=== PATIENT | female | born 1950 | race Caucasian/White ===

== ENCOUNTER 2017-06-30 06:22 | Inpatient (IN) | payer OTHER ==
[2017-05-18 13:53] VITALS: BMI 41.0
--- NOTE | 2017-05-18 14:22 | PAT Medication Instructions ---
Service Date May 18, 2017. Current Home Medication List Allopurinol (Zyloprim), 300 MG PO QAM Aspirin (Aspirin Ec), 81 MG PO QAM Gemfibrozil (Lopid), 300 MG PO QPM Lisinopril/Hctz (Zestoretic 20MG/25MG), 1 TAB PO QAM Metformin Hcl (Glucophage), 1,000 MG PO BID Pravastatin (Pravachol ), 20 MG PO QPM Tramadol (Ultram), 50 MG PO Q8H PRN for Pain Medication Instructions For Your Scheduled Surgery - Hold the following medications 48 hours prior to surgery: Metformin Hcl (Glucophage), 1,000 MG PO BID - Hold the following medications the morning of surgery: Lisinopril/Hctz (Zestoretic 20MG/25MG), 1 TAB PO QAM - Take the following medications the morning of surgery with a sip of water: Allopurinol (Zyloprim), 300 MG PO QAM Aspirin (Aspirin Ec), 81 MG PO QAM (okay to continue per surgeon) Tramadol (Ultram), 50 MG PO Q8H PRN for Pain (okay to take up to 4 hours prior to surgery if needed) - Hold the following medications as scheduled the night before surgery: Gemfibrozil (Lopid), 300 MG PO QPM - Take the following medications as scheduled the night before surgery: Pravastatin (Pravachol ), 20 MG PO QPM Tramadol (Ultram), 50 MG PO Q8H PRN for Pain (if needed) If you have any questions please call us at [phone] or [phone] or [phone]
[2017-05-18 14:58] LABS: BASO % 0.2 %; BASO ABS # 0.02 K/uL (0-0.2); COMPLETE YES; EOS % 2.1 %; HEMATOCRIT 40.5 % (37-47); IG% 0.4 %; LYMPH ABS # 2.79 K/uL (1.2-3.4); MEAN CELL VOLUME 89.8 fL (80-100); MEAN CORPUSCULAR HEMOGLOBIN 29.9 pg (25-34); MEAN CORPUSCULAR HGB CONC 33.3 g/dl (32-36); MEAN PLATELET VOLUME 10.3 fL (7.4-10.4); MONO % 5.9 %; NEUT % 58.4 %; PLATELET COUNT 206 K/uL (130-400); RED BLOOD COUNT 4.51 M/uL (4.2-5.4); WHITE BLOOD COUNT 8.45 K/uL (4.8-10.8)
--- NOTE | 2017-05-18 14:58 | DIAGNOSTIC IMAGING REPORT ---
CHEST PREADMISSION(PA/LAT) CLINICAL HISTORY: Preoperative chest. Osteoarthritis. COMPARISON STUDY: No previous studies for comparison. FINDINGS: The cardiac and mediastinal contours are normal. There is no evidence of focal pulmonary consolidation. There is no evidence of failure. No pleural effusions are visualized.[ There is ankylosis of the dorsal spine. IMPRESSION: No active disease in the chest. Electronically signed by: Vini Alves M.D. 05/18/2017 2:57 PM Dictated Date/Time: 05/18/2017 2:56 PM
[2017-05-18 15:02] LABS: URINE APPEARANCE CLEAR (CLEAR); URINE BILIRUBIN NEG (NEG); URINE COLOR YELLOW; URINE NITRITE NEG (NEG); URINE PH 6.5 (4.5-7.5); URINE SPECIFIC GRAVITY 1.018 (1.000-1.030); UROBILINOGEN NEG (NEG); ZZUR CULT IF INDIC CLEAN CATCH NO
[2017-05-18 15:04] LABS: ESTIMATED AVERAGE GLUCOSE 140 mg/dl; HA1C FLAG Normal (Normal)
[2017-05-18 15:07] LABS: PROTHROMBIN TIME (PATIENT) 10.3 SECONDS (9.0-12.0)
[2017-05-18 15:13] LABS: MANUAL MICROSCOPIC REQUIRED? NO; REVIEW REQ? NO
[2017-05-18 16:38] LABS: BUN/CREATININE RATIO 18.8 (10-20); CALCIUM 9.3 mg/dl (8.5-10.1); CREATININE 0.89 mg/dl (0.60-1.20); POTASSIUM 4.2 mmol/L (3.5-5.1)
--- NOTE | 2017-06-07 14:01 | HISTORY & PHYSICAL EXAMINATION ---
DATE OF ADMISSION: 06/16/2017 SUBJECTIVE CHIEF COMPLAINT: Left knee pain. HISTORY OF PRESENT ILLNESS: The patient is a 66-year-old female who presents with left knee pain. She states that the symptoms have been chronic and nontraumatic in nature and occur constantly. She describes the pain as aching and throbbing. She has tried cortisone injections, nonsteroidal anti-inflammatories and physical therapy without relief. She continues to have swelling and pain throughout her knee while doing activities of daily living. She would like to proceed with a left total knee arthroplasty. PAST MEDICAL HISTORY: Significant for hypertension, hypercholesterolemia, [id number] diabetes, and osteoarthritis. PAST SURGICAL HISTORY: Cholecystectomy, back surgery, and total hysterectomy. SOCIAL HISTORY: She denies alcohol use. She denies smoking or tobacco use. She denies IV or illegal drug use. She lives in a 1-story house. She is currently retired. ALLERGIES: GABAPENTIN. MEDICATIONS: Metformin 1000 mg b.i.d., pravastatin 20 mg daily, gemfibrozil 600 mg one-half daily, allopurinol 300 mg daily, aspirin 81 mg 1 tablet daily, lisinopril 20 mg, and hydrochlorothiazide 25 mg 1 tablet daily. REVIEW OF SYSTEMS: She denies headaches, fevers, chills, double vision, blurry vision, sore throat, cough, chest pain, nausea, vomiting, diarrhea, constipation, numbness, tingling, tired, urinary difficulties, thoughts to harm herself or harm others and depression. She is positive for joint pain and joint stiffness of the left knee. OBJECTIVE: GENERAL APPEARANCE: The patient is a 66-year-old female, sitting in no acute distress. She is well dressed and well nourished. She is awake, alert and oriented x3. VITAL SIGNS: She is 5 feet 2 inches tall and 227 pounds. HEENT: Normocephalic and atraumatic. Extraocular movements are intact. PERRLA. Mucosa was moist. No septal deviation. NECK: Supple with no lymphadenopathy, no JVD, and no thyromegaly. HEART: Regular rate and rhythm. No murmurs. LUNGS: Clear to auscultation. No wheezing or rhonchi. ABDOMEN: Soft, nontender, and nondistended. Normal bowel sounds. No hepatosplenomegaly. EXTREMITIES: Paying particular attention to the left lower extremity, she is able to extend to 0 degrees and flex to 90 degrees. She has medial joint line tenderness. Her ligaments are intact. NEUROLOGIC: Cranial nerves II-XII were intact. Pulses were compared bilaterally and were equal. IMAGING: X-rays of the left knee demonstrate [id number] medial compartment, osteophyte formation and subchondral sclerosis. IMPRESSION: Primary osteoarthritis of the left knee. PLAN: The patient is scheduled for a left total knee arthroplasty. She has tried conservative therapies of nonsteroidal anti-inflammatories, cortisone injections, and physical therapy with no relief. This affects her activities of daily living. She would like to proceed with a left total knee arthroplasty. Risks and benefits to surgery were discussed and included, but not limited to DVT, infection, blood loss, nerve damage, failure to relieve pain, PE, and anesthesia risks and need for revision surgery were all discussed with the patient and she wishes to proceed. All questions were answered to her satisfaction. DVT prophylaxis will be aspirin 81 mg b.i.d. She would like to go home with home health after her hospital stay. MARISOL
--- NOTE | 2017-06-23 11:50 | HISTORY & PHYSICAL EXAMINATION ---
DATE OF ADMISSION: 06/30/2017 SUBJECTIVE CHIEF COMPLAINT: Left knee pain. HISTORY OF PRESENT ILLNESS: The patient is a 66-year-old female who presents to the office with left knee pain. She states the symptoms were of chronic and nontraumatic in nature. The symptoms occur constantly and she describes the pain as aching and throbbing. She has tried previous cortisone injections, physical therapy, and nonsteroidal anti-inflammatories with minimal relief. She would like to proceed with a left total knee arthroplasty. PAST MEDICAL HISTORY: Significant for hypertension, hypercholesterolemia, [id number]-akemtnstz diabetes, and osteoarthritis. PAST SURGICAL HISTORY: Cholecystectomy, back surgery, total hysterectomy. SOCIAL HISTORY: She denies alcohol use. She denies smoking or tobacco use. She denies IV or illegal drug use. She lives in a [address] house and she is currently retired. FAMILY HISTORY: Her brother and her father both had a history of heart attack. ALLERGIES: GABAPENTIN. MEDICATIONS: Tramadol 50 mg every 6 hours as needed for pain, metformin 1000 mg b.i.d., pravastatin 20 mg daily, gemfibrozil 600 mg half tablet daily, allopurinol 300 mg daily, aspirin 81 mg daily, lisinopril 20 mg, hydrochlorothiazide 25 mg 1 tablet daily. REVIEW OF SYSTEMS: She denies headaches, fevers, chills, double vision, blurry vision, sore throat, cough, chest pain, nausea, vomiting, diarrhea, constipation, numbness or tingling, tired, urinary difficulties, thoughts to harm herself or harm others or depression. She is positive for joint pain and joint stiffness of the left knee. OBJECTIVE: GENERAL APPEARANCE: The patient is a 66-year-old female that is sitting in no acute distress. She is well dressed, well nourished. She is awake, alert and oriented x3. VITAL SIGNS: She is 5 foot 2 inches tall, 227 pounds. HEENT: Extraocular movements are intact. PERRLA. Mucosa was moist. No septal deviation. NECK: Supple with no lymphadenopathy, no JVD, no thyromegaly. HEART: Regular rate and rhythm with no murmurs or gallops. LUNGS: Clear to auscultation. No wheezing or rhonchi. ABDOMEN: Soft, nontender, nondistended. Normal bowel sounds, no hepatosplenomegaly. EXTREMITIES: Paying particular attention to the left lower extremity, she is able to extend her knee to 0 degrees and actively flex to 100 degrees. She has medial joint line tenderness as well as anterior knee pain. Ligaments are intact. NEUROLOGIC: Cranial nerves II-XII are intact. Pulses were compared bilaterally and were equal. IMAGING: X-rays of the left knee demonstrate bone on bone of the medial compartment, osteophyte formation and subchondral sclerosis. IMPRESSION: Primary osteoarthritis of the left knee. PLAN: The patient is scheduled for a left total knee arthroplasty. The patient has failed conservative therapies of cortisone injections, nonsteroidal anti-inflammatories and physical therapy. She states that it affects her activities of daily living and she would like to proceed with a left total knee arthroplasty. Risks and benefits to surgery were discussed that included but not limited to blood loss, DVT, infection, damage to blood vessels, damage to nerves, failure to relieve all pain, decreased range of motion and anesthesia risks and were all discussed reviewed with the patient. She understands these risks and she wishes to proceed. All questions were answered to her satisfaction. DVT prophylaxis will be aspirin 81 mg b.i.d. and she will be discharged home with home health. MARISOL
[~2017-06-30] VITALS: Ht 157.5 cm; Wt 102.3 kg
[2017-06-30] VITALS (9 sets, daily range): BP systolic 102–167; BP diastolic 64–103; PULSE 64–80; TEMP 36.3–37.1; O2SAT 95–98; Ht 157.5 cm; Wt 102.3 kg
[~2017-06-30 06:22] MED LIST: ACETAMINOPHEN 500 MG TAB PO SCH; ALLO300T2 PO; ASPI81TA28 PO; CEFAZOLIN 2000 MG/60 ML D5W 60 ML IV SCH; CEFAZOLIN 2000 MG/60 ML D5W IV SCH; CeleBREX 200 MG CAP PO SCH; DEXAMETHASONE 4 MG TAB PO SCH; FAMOTIDINE 20 MG TAB PO SCH; GEMF600T3 PO; LACTATED RINGER'S 1000ML 1,000 ML IV SCH; LACTATED RINGER'S 1000ML 500 ML IV ONE; LACTATED RINGER'S 1000ML IV SCH; LISI-788 PO; METF-384 PO; METOCLOPRAMIDE HCL 10 MG TAB PO SCH; MISSING PHYSICIAN SIGNATURE ON ORDER SCH; PRAV20TA PO; ROPIVACAINE 5MG/ML 30 ML 150 MG, BUPIVACAINE/EPINEPHR 0.5% MPF 30 ML, KETOROLAC TROMETH... INFIL SCH; TRAM-10 PO
--- NOTE | 2017-06-30 06:59 | History & Physical Bridge Note ---
H&P Re-Evaluation Bridge Note: I have examined the patient, reviewed the History & Physical and in the interval since the performance of the History & Physical I have noted the following changes of clinical significance: No changes noted
[2017-06-30] MEDS ORDERED: BUPIVACAINE 0.25% 30 ML VIAL ONE (07:28)
[2017-06-30] MEDS ORDERED: BUPIVACAINE 0.5 % 5 MG/1 ML PF 10ML VIAL ONE (07:29)
[2017-06-30] MEDS ORDERED: FENTANYL CITRATE INJ 50 MCG/1 ML 2 ML VIAL ONE ×3 (08:29→10:36)
[2017-06-30] MEDS ORDERED: PROPOFOL IV EMULSION 10 MG/ML 20 ML VIAL IV ONE ×2 (08:29→10:34)
[2017-06-30] MEDS ORDERED: MIDAZOLAM HCL 1 MG/ML 2ML VIAL ONE (08:29)
[2017-06-30] MEDS: TRANEXAMIC ACID INJ 1,000 MG in SODIUM CHLORIDE 0.9% 100ML 100 ML IV SCH ×2 (09:03→14:30)
[2017-06-30] MEDS ORDERED: LIDOCAINE HCL 2% 2 ML VIAL (20MG/ML) ONE (09:20)
[2017-06-30] MEDS ORDERED: BACITRACIN 50000 UNIT VIAL ONE (09:41)
[2017-06-30] MEDS ORDERED: POVIDONE-IODINE OP SOLN 30 ML BTL ONE (09:41)
[2017-06-30] MEDS ORDERED: ORTHO JOINT ANESTHETIC ONE (10:10)
[2017-06-30] MEDS ORDERED: HYDROmorphone INJ 2 MG/ML SYR/VIAL ONE ×2 (10:38→12:33)
[2017-06-30] MEDS ORDERED: LABETALOL HCL IV 5 MG/ML 20ML IV ONE (10:51)
[2017-06-30] MEDS ORDERED: ONDANSETRON INJ 2 MG/ML 2 ML VIAL ONE (10:51)
[2017-06-30] MEDS ORDERED: LABETALOL HCL IV 5 MG/ML 20ML IV PRN (11:15)
[2017-06-30] MEDS ORDERED: ONDANSETRON INJ 2 MG/ML 2 ML VIAL IV PRN ×2 (11:15→12:30)
[2017-06-30] MEDS ORDERED: HYDROmorphone INJ 1 MG/ML SYR IV PRN (11:15)
[2017-06-30] MEDS ORDERED: FLUMAZENIL 0.1 MG/1 ML 10 ML VIAL IV PRN (11:15)
[2017-06-30] MEDS ORDERED: ATROPINE SULFATE 0.1 MG/ML 5ML SYR IV PRN (11:15)
[2017-06-30] MEDS ORDERED: NALOXONE HCL 0.4 MG/1 ML VIAL/CARP IV PRN (11:15)
[2017-06-30] MEDS ORDERED: PROMETHAZINE HCL INJ 12.5 MG in SODIUM CHLORIDE 0.9% 50ML 50 ML IV PRN (11:15)
[2017-06-30] MEDS ORDERED: EpHEDrine SULFATE INJ 50 MG/ML AMP IV PRN (11:15)
--- NOTE | 2017-06-30 11:51 | [facility] Operative Report ---
Operative Report Operative Date Jun 30, 2017. Pre-Operative Diagnosis Primary Osteoarthritis of Left Knee Post-Operative Diagnosis Primary Osteoarthritis of Left Knee Procedure(s) Performed Left Total Knee Arthroplasty, Cemented Surgeon Dr. Gerardo Santacruz Supplies Packer Surgeon(s) Goyo Arriola PA-C Estimated Blood Loss 50ML Findings as above Specimens A. Left Knee Bone and Tissue Drains 0 Anesthesia geta Complication(s) None Disposition Recovery Room / PACU Indications 66 yo female with bone on bone OA of the left knee particularly in the medial compartment. She has failed conservative measures including injection and anti- inflammatories and rehabilitation. She wishes to proceed with left total knee arthroplasty. Description of Procedure Risks benefits and alternatives of surgery including but not limited to infection DVT pain stiffness need for surgery damage to blood vessels damage to nerves or risks of anesthesia were discussed with the patient and she wished to proceed. Patient was identified in the laterality was confirmed and marked. She received a preoperative antibiotic is also a spinal anesthetic and a abductor canal block. A well-padded tourniquet was applied and then the limb was prepped and draped in standard manner with ChloraPrep. The tourniquet was inflated. I made a standard anterior incision. I sharply incised the skin then utilized Bovie electrocautery as well as the aqua mantis to achieve hemostasis. I made a medial parapatellar arthrotomy immobilized the patella laterally. I then excised the anterior horns of the medial and lateral meniscus as well as the infrapatellar fat pad. I elevated a portion of the MCL off of the tibia. I then pinned into place a patient-matched distal femoral cutting guide and made my distal femoral resection. I then pinned into place a size the 5 in 1 cutting guide. I made my anterior, posterior and chamfer cuts. I then excised the cruciates and the remaining portions of the menisci. I then pinned into place a patient- matched tibial cutting guide and made my tibial resection. I then pinned into place the patient matched tibial cutting guide and used a alignment deborah to confirm rotation. I then cut for the post. Utilizing a lamina shoe turner and I then removed posterior osteophytes off the femur. I then placed a trial femur into position and cut for the trochlear component. I then sequentially trialed the polyethylene, she was still tight in both flexion as well as extension with the 9 mm poly-. I therefore took an additional 2 mm off of the tibia. I then trialed up to size 10 poly-and there was good soft tissue balancing and range of motion. I then prepared the patella with a freehand cut utilizing sagittal saw. I sized and drilled for the patella. There was some slight lateral tracking of the patella small lateral release was needed. All the trial components were removed. The deep tissues were anesthetized with and ortho mix solution. Then with Simplex HV with gentamicin cement I cemented my definitive components. Definitive components, Silverman and Nephew Sally 2: Femur 5 Tibia for Poly 10 Patella 32 oval A betadine soak was performed. The arthrotomy was closed with interrupted #1 Vicryl suture subcutaneous tissue was closed with interrupted 2-0 Vicryl suture. The skin was closed with dudley. A sterile Prevena wound VAC dressing was applied. All needle and sponge counts were correct at the end of the procedure patient was transferred to the PACU in stable condition without apparent complication. The PA-C was necessary for assistance with procedure for assistance in positioning, prepping, draping, retraction and closure. I attest to the content of the Intraoperative Record and any orders documented therein. Any exceptions are noted below.
[2017-06-30] MEDS ORDERED: BISACODYL 10 MG SUPP PR PRN (12:30)
[2017-06-30] MEDS ORDERED: ZOLPIDEM TARTRATE 5 MG TAB PO PRN (12:30)
[2017-06-30] MEDS ORDERED: MAGNESIUM HYDROXIDE SUSP 30 ML UDC PO PRN (12:30)
[2017-06-30] MEDS ORDERED: ALUMINUM/MAGNESIUM/SIMETH (MAALOX MAX) 30 ML UDC PO PRN (12:30)
[2017-06-30] MEDS ORDERED: SOD PHOSPHATE/SOD BIPHOSPHATE ENEMA 132 ML BTL PR PRN (12:30)
[2017-06-30] MEDS ORDERED: OXYCODONE HCL IR 5 MG TAB (IMMEDIATE RELEASE) PO PRN (12:30)
[2017-06-30] MEDS ORDERED: MoRPHine SULFATE 2 MG/ML CARP IV PRN (12:30)
--- NOTE | 2017-06-30 13:21 | Anesthesiology Progress Note ---
Anesthesia Post Op Note Date & Time Jun 30, 2017 at 13:21 Vital Signs Pain Intensity: 2 Vital Signs Past 12 Hours Date Time Temp Pulse Resp B/P (MAP) Pulse Ox O2 Delivery O2 Flow Rate FiO2 06/30/17 13:12 36.8 06/30/17 13:11 99 23 148/92 97 06/30/17 13:11 96 23 06/30/17 13:06 85 14 06/30/17 13:06 85 14 129/81 98 06/30/17 13:01 83 12 06/30/17 13:01 83 12 156/90 96 06/30/17 12:56 96 26 06/30/17 12:56 96 26 128/73 92 06/30/17 12:51 87 15 06/30/17 12:51 90 15 135/109 96 06/30/17 12:46 83 20 06/30/17 12:46 83 20 137/69 95 06/30/17 12:41 96 16 06/30/17 12:41 108 16 160/78 99 06/30/17 12:36 102 22 153/77 94 06/30/17 12:36 101 22 06/30/17 12:31 103 17 06/30/17 12:31 103 17 98 06/30/17 12:30 137/89 06/30/17 12:26 36.6 109 16 137/89 97 Nasal Cannula 4 06/30/17 06:41 36.6 80 20 167/103 98 Room Air Notes Mental Status: alert / awake / arousable, participated in evaluation Pt Amnestic to Procedure: Yes Nausea / Vomiting: adequately controlled Pain: adequately controlled Airway Patency, RR, SpO2: stable & adequate BP & HR: stable & adequate Hydration State: stable & adequate Anesthetic Complications: no major complications apparent
[2017-06-30] MEDS ORDERED: GLUCOSE 40% GEL 15 GM TUBE PO PRN (14:30)
[2017-06-30] MEDS ORDERED: DEXTROSE 50% 50 ML SYR IV PRN (14:30)
[2017-06-30] MEDS ORDERED: GLUCOSE 10 TABS/TUBE PO PRN (14:30)
[2017-06-30] MEDS ORDERED: GLUCAGON FOR INJ 1 MG VIAL SQ PRN (14:30)
[2017-06-30] MEDS: SODIUM CHLORIDE 0.9% 1000ML 1,000 ML IV SCH ×2 (14:39→22:08)
[2017-06-30] MEDS: INSULIN ASPART 100 UNITS/ML 3 ML PEN SC SCH ×3 (14:45→21:59)
[2017-06-30] MEDS ORDERED: LUTE20CA PO (16:43)
--- NOTE | 2017-06-30 16:57 | Medical Consult ---
Consultation Date of Consultation: Jun 30, 2017. Attending Physician: Gerardo Santacruz M.D. Reason for Consultation: medical management History of Present Illness Patient seen and examined after going L TKA today by Dr. Santacruz. Bannister "woozy" earlier, but currently has no complaints. Not having any pain. She has eaten some fruit. Denies chest pain, SOB, N/V. Past Medical/Surgical History Medical Problems: (1) DM type 2 (diabetes mellitus, type 2) Status: Chronic (2) Dyslipidemia Status: Chronic (3) Gout Status: Chronic (4) HTN (hypertension) Status: Chronic (5) Obesity, morbid, BMI 40.0-49.9 Status: Chronic Surgical Problems: (1) H/O oophorectomy Status: Chronic (2) History of hysterectomy Status: Chronic (3) S/P cholecystectomy Status: Chronic (4) S/P dilation and curettage Status: Chronic (5) S/P foot surgery Status: Chronic (6) S/P lumbar spinal fusion Status: Chronic Family History FH: CAD (coronary artery disease) BROTHER FH: breast cancer MOTHER Social History Smoking Status: Never Smoker Alcohol Use: none Drug Use: none Marital Status: Housing Status: lives with significant other Allergies Coded Allergies: Gabapentin (Verified Allergy, Unknown, SEVERE ITCHING, 06/30/17) Home Medications Active Reported Zestoretic 20MG/25MG (HCTZ/Lisinopril) Tab 1 Tab PO QAM Aspirin Ec (Aspirin) 81 Mg Tab 81 Mg PO QAM Zyloprim (Allopurinol) 300 Mg Tab 300 Mg PO QAM Lopid (Gemfibrozil) 600 Mg Tab 300 Mg PO QPM Pravachol (Pravastatin Sodium) 20 Mg Tab 20 Mg PO QPM Glucophage (Metformin Hcl) 1,000 Mg Tab 1,000 Mg PO BID Ultram (Tramadol HCl) 50 Mg Tab 50 Mg PO Q8H PRN [facility] Natural Lutein Eye He (Lutein) 20 Mg Cap 20 Mg PO DAILY Current Inpatient Medications Current Inpatient Medications Medications (Trade) Dose Ordered Sig/Tayo Route Start Time Stop Time Status Last Admin Dose Admin Lactated Ringer's 1,000 ml @ 15 mls/hr Q24H IV 06/30/17 06:00 07/01/17 05:59 06/30/17 07:29 15 MLS/HR Lactated Ringer's 1,000 ml @ 60 mls/hr [id number] IV 06/30/17 06:00 06/30/17 22:39 Cefazolin Sodium 60 ml @ 100 mls/hr PREOP IV 06/30/17 06:00 06/30/17 18:00 06/30/17 10:02 100 MLS/HR Acetaminophen (Tylenol Tab) 1,000 mg PREOP PO 06/30/17 06:00 06/30/17 18:00 06/30/17 07:17 1,000 MG Celecoxib (CeleBREX CAP) 200 mg PREOP PO 06/30/17 06:00 06/30/17 18:00 06/30/17 07:17 200 MG Dexamethasone (Decadron Tab) 8 mg PREOP PO 06/30/17 06:00 06/30/17 18:00 06/30/17 07:16 8 MG Famotidine (Pepcid Tab) 20 mg PREOP PO 06/30/17 06:00 06/30/17 18:00 06/30/17 07:16 20 MG Metoclopramide HCl (Reglan Tab) 10 mg PREOP PO 06/30/17 06:00 06/30/17 18:00 06/30/17 07:16 10 MG Tranexamic Acid 1000 mg/Sodium Chloride 110 ml @ 660 mls/hr TODAY@06,0630 IV 06/30/17 06:00 06/30/17 18:00 06/30/17 09:03 660 MLS/HR Sodium Chloride 1,000 ml @ 100 mls/hr Q10H IV 06/30/17 12:29 07/01/17 12:28 06/30/17 14:39 100 MLS/HR Cefazolin Sodium 2000 mg/Dextrose 60 ml @ 100 mls/hr Q8H IV 06/30/17 18:00 07/01/17 02:35 Celecoxib (CeleBREX CAP) 200 mg BID PO 06/30/17 21:00 07/30/17 20:59 Oxycodone HCl (Roxicodone Immediate Rel Tab) 1 TABLET FOR PAIN RATING... Q4H PRN PO 06/30/17 12:30 07/14/17 12:29 Oxycodone HCl (Oxycontin Tab) 10 mg Q12 PO 06/30/17 21:00 07/14/17 20:59 Morphine Sulfate (MoRPHine SULFATE INJ) 2 mg Q2H PRN IV 06/30/17 12:30 07/14/17 12:29 Magnesium Hydroxide (Milk Of Magnesia Susp) 30 ml Q6H PRN PO 06/30/17 12:30 07/30/17 12:29 Bisacodyl (Dulcolax Supp) 10 mg DAILY PRN SC 06/30/17 12:30 07/30/17 12:29 Sodium Biphosphate/ Sodium Phosphate (Fleet Enema) 132 ml DAILY PRN SC 06/30/17 12:30 07/30/17 12:29 Senna (Senokot Tab) 17.2 mg HS PO 06/30/17 21:00 07/30/17 20:59 Docusate Sodium (coLACE CAP) 100 mg BID PO 06/30/17 21:00 07/30/17 20:59 Diphenhydramine HCl (Benadryl Cap) 25 mg Q8H PRN PO 06/30/17 12:30 07/30/17 12:29 Al Hydrox/Mg Hydrox/Simethicone (Maalox Max Susp) 15 ml Q4H PRN PO 06/30/17 12:30 07/30/17 12:29 Zolpidem Tartrate (Ambien Tab) 5 mg HSZ PRN PO 06/30/17 12:30 07/30/17 12:29 Multivitamins (Multivitamin Tab) 1 tab QAM PO 07/01/17 09:00 07/31/17 08:59 Ondansetron HCl (Zofran Inj) 4 mg Q6H PRN IV 06/30/17 12:30 07/30/17 12:29 Ferrous Gluconate (Ferrous Gluconate Tab) 324 mg TIDM PO 06/30/17 17:45 07/30/17 17:59 Pantoprazole Sodium (Protonix Tab) 40 mg QAM PO 07/01/17 09:00 07/31/17 08:59 Aspirin (Ecotrin Tab) 81 mg BID PO 06/30/17 21:00 07/30/17 20:59 Allopurinol (Zyloprim Tab) 300 mg QAM PO 07/01/17 09:00 07/31/17 08:59 Gemfibrozil (Lopid Tab) 300 mg QPM PO 06/30/17 21:00 07/30/17 20:59 HCTZ/Lisinopril (Prinzide 20-25MG Tab) 1 tab QAM PO 07/01/17 09:00 07/31/17 08:59 Metformin HCl (Glucophage Tab) 1,000 mg BIDM PO 07/01/17 17:45 07/31/17 17:44 Pravastatin Sodium (Pravachol Tab) 20 mg QPM PO 06/30/17 21:00 07/30/17 20:59 Insulin Aspart (novoLOG ASPART) SLIDING SCALE If C... ACHS SC 06/30/17 14:45 07/30/17 14:44 Glucose (Glucose 40% Gel) 15-30 GRAMS 15 GRAMS... UD PRN PO 06/30/17 14:30 07/30/17 14:29 Glucose (Glucose Chew Tab) 4-8 Tablets 4 Tabl... UD PRN PO 06/30/17 14:30 07/30/17 14:29 Dextrose (Dextrose 50% 50ML Syringe) 25-50ML OF 50% DW IV FOR... UD PRN IV 06/30/17 14:30 07/30/17 14:29 Glucagon (Glucagon Inj) 1 mg UD PRN SQ 06/30/17 14:30 07/30/17 14:29 Review of Systems Ten systems reviewed and negative except as noted in HPI. Physical Exam Date Time Temp Pulse Resp B/P (MAP) Pulse Ox O2 Delivery O2 Flow Rate FiO2 06/30/17 16:05 36.4 72 17 115/70 (85) 96 Nasal Cannula 2.0 06/30/17 15:30 Nasal Cannula 2.0 06/30/17 14:55 36.3 67 17 134/87 (103) 98 Nasal Cannula 2.0 06/30/17 14:30 76 18 149/84 (105) 96 06/30/17 14:23 36.7 68 20 148/89 (108) 97 Nasal Cannula 3.0 06/30/17 14:06 99 Nasal Cannula 3.0 06/30/17 14:00 97 Nasal Cannula 3.0 06/30/17 13:41 119/73 06/30/17 13:38 89 12 97 06/30/17 13:38 88 12 06/30/17 13:36 127/83 06/30/17 13:33 84 13 06/30/17 13:33 83 13 97 06/30/17 13:31 130/72 06/30/17 13:28 86 16 96 06/30/17 13:28 86 16 06/30/17 13:26 126/68 06/30/17 13:23 84 12 06/30/17 13:23 83 12 97 06/30/17 13:21 171/77 06/30/17 13:18 84 13 90 06/30/17 13:18 84 13 06/30/17 13:16 146/84 06/30/17 13:13 84 11 91 06/30/17 13:13 84 11 06/30/17 13:12 36.8 06/30/17 13:11 99 23 148/92 97 06/30/17 13:11 96 23 06/30/17 13:06 85 14 06/30/17 13:06 85 14 129/81 98 06/30/17 13:01 83 12 06/30/17 13:01 83 12 156/90 96 06/30/17 12:56 96 26 06/30/17 12:56 96 26 128/73 92 06/30/17 12:51 87 15 06/30/17 12:51 90 15 135/109 96 06/30/17 12:46 83 20 06/30/17 12:46 83 20 137/69 95 06/30/17 12:41 96 16 06/30/17 12:41 108 16 160/78 99 06/30/17 12:36 102 22 153/77 94 06/30/17 12:36 101 22 06/30/17 12:31 103 17 06/30/17 12:31 103 17 98 06/30/17 12:30 137/89 06/30/17 12:26 36.6 109 16 137/89 97 Nasal Cannula 4 06/30/17 06:41 36.6 80 20 167/103 98 Room Air General Appearance: no apparent distress, + obese, + pertinent finding (lying in bed, no distress, at bedside) Head: normocephalic, atraumatic Eyes: normal inspection ENT: normal ENT inspection, hearing grossly normal Neck: supple, trachea midline Respiratory/Chest: lungs clear, normal breath sounds, no respiratory distress, no accessory muscle use Cardiovascular: regular rate, rhythm, no murmur Abdomen/GI: normal bowel sounds, non tender, soft Extremities/Musculoskelatal: + pertinent finding (s/p left TKA. dressing in place. ) Neurologic/Psych: alert, normal mood/affect, oriented x 3, + pertinent finding (able to flex/ extend ankles bilaterally) Skin: normal color, warm/dry Laboratory Results Last 24 Hours Test 06/30/17 06:39 06/30/17 12:50 06/30/17 14:35 Bedside Glucose 127 mg/dl 178 mg/dl 168 mg/dl Assessment & Plan S/P LEFT TKA POD# [address] Santacruz Doing well postoperatively Monitor daily H/H for sign of acute blood loss anemia HYPERTENSION BP is stable Resume lisinopril-HCTZ in am DM TYPE 2 BSG in 170s Hold metformin Novolog sliding scale coverage DYSLIPIDEMIA Continue statin and gemfibrozil DVT PROPHYLAXIS Per ortho DISPOSITION Per ortho Patient seen in collaboration with Dr. Massey. Please see his addendum. Attending Physician Addendum I have examined the patient in conjunction with YARELIS Lucio and agree with her assessment plan and would like to comment on the following This is a 66 year F s/p left total knee arthroplasty. Patient currently doing well. Denies chest pain and shortness of breath. Hold oral antihyperglycemic medications for now and use subcutaneous insulin while inpatient adjusted to fingerstick glucose.
--- NOTE | 2017-06-30 17:30 | DIAGNOSTIC IMAGING REPORT ---
LEFT KNEE 1 OR 2 VIEWS ROUTINE HISTORY: 66 years-old Female AP/LATERAL IN PACU LEFT KNEE status post left total knee arthroplasty COMPARISON: None available TECHNIQUE: Frontal and lateral views of the left knee FINDINGS: There has been recent total left knee joint arthroplasty and patellar resurfacing without complication. Midline anterior skin dudley are present with expected postsurgical soft tissue swelling and deep tissue air. Surgical drain is in place. IMPRESSION: Status post left knee total joint arthroplasty and patellar resurfacing without complication. The above report was generated using voice recognition software. It may contain grammatical, syntax or spelling errors. Electronically signed by: Moy Oakley M.D. 06/30/2017 5:29 PM Dictated Date/Time: 06/30/2017 5:28 PM
[2017-06-30] MEDS: FERROUS GLUCONATE 324 MG TAB PO SCH (18:03)
[2017-06-30] MEDS: CEFAZOLIN IV 2,000 MG in DEXTROSE 5% 50ML 50 ML IV SCH (18:07)
[2017-06-30] MEDS: CeleBREX 200 MG CAP PO SCH (21:54)
[2017-06-30] MEDS: ASPIRIN 81 MG ECTAB PO SCH (21:55)
[2017-06-30] MEDS: DOCUSATE SODIUM 100 MG CAP PO SCH (21:55)
[2017-06-30] MEDS: PRAVASTATIN SOD 20 MG TAB PO SCH (21:56)
[2017-06-30] MEDS: OXYCODONE HCL 10 MG TABCR (OXYCONTIN) PO SCH (21:56)
[2017-06-30] MEDS: GEMFIBROZIL 600 MG TAB PO SCH (21:56)
[2017-06-30] MEDS: SENNA 8.6 MG TAB PO SCH (21:57)
[2017-07-01] MEDS: CEFAZOLIN IV 2,000 MG in DEXTROSE 5% 50ML 50 ML IV SCH (01:52)
[2017-07-01 03:30] VITALS: BP 99/64; PULSE 67; TEMP 36.3; O2SAT 93
[2017-07-01 06:50] LABS: HEMATOCRIT 33.3 % (37-47); MEAN CORPUSCULAR HEMOGLOBIN 28.6 pg (25-34); MEAN CORPUSCULAR HGB CONC 32.1 g/dl (32-36); MEAN PLATELET VOLUME 10.3 fL (7.4-10.4); PLATELET COUNT 194 K/uL (130-400); RED BLOOD COUNT 3.74 M/uL (4.2-5.4); WHITE BLOOD COUNT 14.76 K/uL (4.8-10.8)
[2017-07-01 07:11] VITALS: BP 100/53; PULSE 69; TEMP 36.6; O2SAT 98
[2017-07-01 07:32] LABS: BUN/CREATININE RATIO 19.9 (10-20); CALCIUM 7.9 mg/dl (8.5-10.1); CREATININE 1.1 mg/dl (0.60-1.20); POTASSIUM 3.7 mmol/L (3.5-5.1)
[2017-07-01] MEDS: SODIUM CHLORIDE 0.9% 1000ML 1,000 ML IV SCH (08:53)
[2017-07-01] MEDS: CeleBREX 200 MG CAP PO SCH ×2 (08:54→20:54)
[2017-07-01] MEDS: DOCUSATE SODIUM 100 MG CAP PO SCH ×2 (08:54→20:53)
[2017-07-01] MEDS: ASPIRIN 81 MG ECTAB PO SCH ×2 (08:54→20:53)
[2017-07-01] MEDS: FERROUS GLUCONATE 324 MG TAB PO SCH ×3 (08:54→17:58)
[2017-07-01] MEDS: MULTIVITAMIN TAB PO SCH (08:54)
[2017-07-01] MEDS: PANTOprazole SOD 40 MG TAB PO SCH (08:55)
[2017-07-01] MEDS: LISINOPRIL/HCTZ 20/25MG TAB PO SCH (08:55)
[2017-07-01] MEDS: ALLOPURINOL 300 MG TAB PO SCH (08:55)
[2017-07-01] MEDS: OXYCODONE HCL 10 MG TABCR (OXYCONTIN) PO SCH ×2 (08:55→20:54)
[2017-07-01] MEDS: INSULIN ASPART 100 UNITS/ML 3 ML PEN SC SCH ×4 (09:01→20:55)
--- NOTE | 2017-07-01 10:27 | Orthopedic Progress Note ---
Orthopedic Progress Note Date of Service Jul 01, 2017. Subjective Post OP Day: 1 Reports: feeling well, pain controlled w PO medications, Denies: chest pain, SOB , nausea / vomiting, light headedness, calf pain Objective calves soft nontender, N/V intact, capillary refill less than 2 sec., dressing C /D/I, A&O x3, toes mobile, hemovac drainage Date Time Temp Pulse Resp B/P (MAP) Pulse Ox O2 Delivery O2 Flow Rate FiO2 07/01/17 08:12 Room Air 07/01/17 07:11 36.6 69 18 100/53 (69) 98 Room Air 07/01/17 03:30 36.3 67 18 99/64 (76) 93 Room Air 07/01/17 00:15 Room Air 06/30/17 23:13 36.7 66 16 102/64 (77) 98 Room Air 06/30/17 19:10 37.1 72 17 113/70 (84) 95 Room Air 06/30/17 17:08 36.8 64 17 120/71 (87) 95 Room Air 06/30/17 16:05 36.4 72 17 115/70 (85) 96 Nasal Cannula 2.0 06/30/17 15:30 Nasal Cannula 2.0 06/30/17 14:55 36.3 67 17 134/87 (103) 98 Nasal Cannula 2.0 06/30/17 14:30 76 18 149/84 (105) 96 06/30/17 14:23 36.7 68 20 148/89 (108) 97 Nasal Cannula 3.0 06/30/17 14:06 99 Nasal Cannula 3.0 06/30/17 14:00 97 Nasal Cannula 3.0 06/30/17 13:41 119/73 06/30/17 13:38 89 12 97 06/30/17 13:38 88 12 06/30/17 13:36 127/83 06/30/17 13:33 84 13 06/30/17 13:33 83 13 97 06/30/17 13:31 130/72 06/30/17 13:28 86 16 96 06/30/17 13:28 86 16 06/30/17 13:26 126/68 06/30/17 13:23 84 12 06/30/17 13:23 83 12 97 06/30/17 13:21 171/77 06/30/17 13:18 84 13 90 06/30/17 13:18 84 13 06/30/17 13:16 146/84 06/30/17 13:13 84 11 91 06/30/17 13:13 84 11 06/30/17 13:12 36.8 06/30/17 13:11 99 23 148/92 97 06/30/17 13:11 96 23 06/30/17 13:06 85 14 06/30/17 13:06 85 14 129/81 98 06/30/17 13:01 83 12 06/30/17 13:01 83 12 156/90 96 06/30/17 12:56 96 26 06/30/17 12:56 96 26 128/73 92 06/30/17 12:51 87 15 06/30/17 12:51 90 15 135/109 96 06/30/17 12:46 83 20 06/30/17 12:46 83 20 137/69 95 06/30/17 12:41 96 16 06/30/17 12:41 108 16 160/78 99 06/30/17 12:36 102 22 153/77 94 06/30/17 12:36 101 22 06/30/17 12:31 103 17 06/30/17 12:31 103 17 98 06/30/17 12:30 137/89 06/30/17 12:26 36.6 109 16 137/89 97 Nasal Cannula 4 Laboratory Results 24 Hours: Test 07/01/17 05:35 Hematocrit 33.3 % Hemoglobin 10.7 g/dL Prothromb Time International Ratio 1.0 Prothrombin Time 11.0 SECONDS Assessment & Plan Assessment: POD #1left TKA Plan: Plan for DC with HH tomorrow DVT- ASA, SCD, YOUNG PT Patient seen and examined, agree with above. Inhouse Planning Pain Management: Oxycontin, Oxy IR DVT Prophylaxis: TEDs, SCDs, ASA Discharge Planning Discharge Planning: home with home health Therapy: Physical Therapy
[2017-07-01 10:53] VITALS: BP 124/72; PULSE 65; TEMP 36.7; O2SAT 96
[2017-07-01] MEDS: METFORMIN HCL 500 MG TAB PO SCH (17:59)
[2017-07-01] MEDS: GEMFIBROZIL 600 MG TAB PO SCH (20:54)
[2017-07-01] MEDS: SENNA 8.6 MG TAB PO SCH (20:55)
[2017-07-01] MEDS: PRAVASTATIN SOD 20 MG TAB PO SCH (20:55)
[2017-07-01 22:56] VITALS: BP 126/72; PULSE 69; TEMP 37.1; O2SAT 99
[2017-07-02 07:06] VITALS: BP 126/72; PULSE 63; TEMP 36.6; O2SAT 97
[2017-07-02] MEDS: FERROUS GLUCONATE 324 MG TAB PO SCH (08:40)
[2017-07-02] MEDS: MULTIVITAMIN TAB PO SCH (08:41)
[2017-07-02] MEDS: ALLOPURINOL 300 MG TAB PO SCH (08:41)
[2017-07-02] MEDS: PANTOprazole SOD 40 MG TAB PO SCH (08:41)
[2017-07-02] MEDS: LISINOPRIL/HCTZ 20/25MG TAB PO SCH (08:41)
[2017-07-02] MEDS: OXYCODONE HCL 10 MG TABCR (OXYCONTIN) PO SCH (08:41)
[2017-07-02 08:45] LABS: MEAN CELL VOLUME 90.4 fL (80-100); MEAN CORPUSCULAR HEMOGLOBIN 29.3 pg (25-34); MEAN CORPUSCULAR HGB CONC 32.4 g/dl (32-36); MEAN PLATELET VOLUME 9.8 fL (7.4-10.4); PLATELET COUNT 168 K/uL (130-400); RED BLOOD COUNT 3.76 M/uL (4.2-5.4); WHITE BLOOD COUNT 8.78 K/uL (4.8-10.8)
[2017-07-02] MEDS: METFORMIN HCL 500 MG TAB PO SCH (09:08)
[2017-07-02] MEDS: ASPIRIN 81 MG ECTAB PO SCH (09:09)
[2017-07-02] MEDS: DOCUSATE SODIUM 100 MG CAP PO SCH (09:09)
[2017-07-02] MEDS: CeleBREX 200 MG CAP PO SCH (09:09)
[2017-07-02] MEDS: INSULIN ASPART 100 UNITS/ML 3 ML PEN SC SCH (09:12)
[2017-07-02 09:15] VITALS: BP 126/72; PULSE 63; TEMP 36.6; O2SAT 97
[2017-07-02 09:21] LABS: BUN/CREATININE RATIO 19.8 (10-20); CALCIUM 8.4 mg/dl (8.5-10.1); CREATININE 0.99 mg/dl (0.60-1.20); MAGNESIUM 1.9 mg/dl (1.8-2.4); POTASSIUM 3.7 mmol/L (3.5-5.1)
[2017-07-02 10:03] VITALS: BP 126/72; PULSE 63; O2SAT 97
--- NOTE | 2017-07-02 10:22 | Orthopedic Progress Note ---
Orthopedic Progress Note Date of Service Jul 02, 2017. Subjective Post OP Day: 2 Reports: feeling well, pain controlled w PO medications, Denies: chest pain, SOB , nausea / vomiting, light headedness, calf pain Objective calves soft nontender, N/V intact, capillary refill less than 2 sec., dressing C /D/I, A&O x3, toes mobile Date Time Temp Pulse Resp B/P (MAP) Pulse Ox O2 Delivery O2 Flow Rate FiO2 07/02/17 10:03 63 97 07/02/17 09:15 36.6 63 18 97 Room Air 07/02/17 08:25 Room Air 07/02/17 07:06 36.6 63 18 126/72 (90) 97 Room Air 07/01/17 23:30 Room Air 07/01/17 22:56 37.1 69 16 126/72 (90) 99 Room Air 07/01/17 15:20 Room Air 07/01/17 10:53 36.7 65 16 124/72 (89) 96 Room Air Laboratory Results 24 Hours: Test 07/02/17 08:30 Hematocrit 34.0 % Hemoglobin 11.0 g/dL Assessment & Plan Assessment: POD #2 left TKA Plan: Plan for DC with HH today DVT- ASA, SCD, YOUNG PT Patient seen and examined, agree with above. Inhouse Planning Pain Management: Oxycontin, Oxy IR DVT Prophylaxis: TEDs, SCDs, ASA Discharge Planning Discharge Planning: home with home health Therapy: Physical Therapy
[2017-07-02] MEDS ORDERED: OXYSR10 PO (10:25)
[2017-07-02] MEDS ORDERED: FRRG PO (10:25)
[2017-07-02] MEDS ORDERED: ONDA8TAB6 PO (10:25)
[2017-07-02] MEDS ORDERED: RXC5 PO (10:25)
[2017-07-02] MEDS ORDERED: CLB200 PO (10:25)
[2017-07-02] MEDS ORDERED: MULT-890 PO (10:25)
[2017-07-02] MEDS ORDERED: ASPI81TA28 PO (10:25)
--- NOTE | 2017-07-02 10:28 | Discharge Instructions ---
Discharge Instructions Date of Service Jul 02, 2017. Admission Reason for Admission: Left Knee Osteoarthritis Discharge Discharge Diagnosis / Problem: s/p left TKA Discharge Goals Goal(s): Decrease discomfort, Improve function, Increase independence, Therapeutic intervention Activity Recommendations Activity Limitations: per Instructions/Follow-up section . Instructions / Follow-Up Instructions / Follow-Up ACTIVITY RECOMMENDATIONS: SELF CARE INSTRUCTIONS AFTER TOTAL KNEE REPLACEMENT A. You may need to continue a physical therapy program after discharge from the hospital. There are several options available to you. Your doctor will assist you in selecting the best one for you. 1. An out-patient facility 2 to 3 times a week for therapy or home therapy. 2. Continue working on all exercises taught to you in the hospital. Your goals should be to increase bending of your knee to 90 degrees and beyond and to fully straighten your knee. B. You may progress at your own pace from walking with a walker or crutches to a cane; then to no assistive devices. C. Make walking a part of your daily routine. Be up as much as comfortable with rest periods throughout the day. Rest with leg elevation is very important. Use the ice wrap frequently for the first 3-4 weeks. D. There are no restrictions on activities. 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 E. Wear the long elastic stockings (YOUNG hose) 20 hours a day for 2 weeks after surgery. They can be removed several times a day for laundering and for a bath. F. You may shower, no tub baths until cleared by your doctor. SPECIAL CARE INSTRUCTIONS: VERY IMPORTANT TO READ AND REVIEW A. There are a few signs you need to watch for after you are home. Call [facility] [place] if you notice any of the followin. Increased severe knee pain. Some pain is expected especially when you exercise. 2. Increased swelling in your leg or knee; pain or swelling of the calf muscle in either lower leg. 3. Any fluid drainage from the incision. 4. Shortness of breath or chest pain. B. Please call [facility] [place] at if you have any concerns or questions about your operation or recovery. The doctor or his nurse will return your call promptly. C. You must take antibiotics before dental work, bladder, bowel or other surgery. Your doctor will provide you with a permanent care to carry describing this precaution. IMPORTANT: * REMEMBER TO TAKE ASPIRIN, 81 MG, TWICE DAILY FOR 4 WEEKS UNLESS OTHERWISE DIRECTED. THIS IS YOUR BLOOD THINNER. * HIGH RISK PATIENTS MAY BE PRESCRIBED A STRONGER BLOOD THINNER. THIS WILL BE PROVIDED AT DISCHARGE. * CALL IF INCREASED PAIN, REDNESS, DRAINAGE OR FEVER GREATER THAT 101. * WEAR YOUNG HOSE 20 HOURS PER DAY FOR 2 WEEKS. * YOU MAY HAVE A LARGE BAND-AID LIKE DRESSING (SILVERON). THIS WILL REMAIN ON YOUR INCISION FOR 7 DAYS, THEN CAN BE REMOVED. IF INCISION IS LEAKING THROUGH DRESSING, CALL THE OFFICE . FOLLOW UP VISIT: If appointment is not already scheduled: Please call [facility] [place] to make a follow-up appointment for 2 weeks after your surgery at . Current Hospital Diet Patient's current hospital diet: Diabetes Type 2 Diet Discharge Diet Recommended Diet: Diabetes Type 2 Diet Procedures Procedures Performed: Left Total Knee Arthroplasty, Cemented Pending Studies Studies pending at discharge: no Laboratory Results Hemoglobin A1c Test 05/18/17 14:30 Range/Units Estimated Average Glucose 140 mg/dl Hemoglobin A1c 6.5 H 4.5-5.6 % Medical Emergencies . Who to Call and When: Medical Emergencies: If at any time you feel your situation is an emergency, please call 151 immediately. . Non-Emergent Contact Non-Emergency issues call your: Primary Care Provider . "Provider Documentation" section prepared by Kassandra Diane. . VTE Core Measure Inpt VTE Proph given/why not?: Other Anticoagulation, T.E.D. Stockings, SCD's [place] Drug Monitoring Program Search Results: patient reviewed within database, no issues identified
--- NOTE | 2017-07-02 12:09 | Progress Note ---
Internal Med Progress Note Date of Service: Jul 02, 2017. Provider Documentation: SUBJECTIVE: The patient was seen and examined Denies any complaints Ambulating without any difficulty OBJECTIVE: Vital Signs-as noted below Exam: General-No distress at rest Eyes-Normal ENT-Normal Neck-normal Lungs-Clear to ausucltate bilaterally Heart-Regular,no murmur appreciated Abdomen-Benign,no masses,bowel sound present Extremities-NO edema Neuro-AAOx3 Lab data as noted below. ASSESSMENT & PLAN: S/P LEFT TKA POD# [address] Santacruz Doing well postoperatively Monitor daily H/H for sign of acute blood loss anemia Blood counts reasonable HYPERTENSION BP is stable Started back on her BP meds Controlled now DM TYPE 2 BSG in 170s Hold metformin NovoLog sliding scale coverage Resume Metformin on discharge DYSLIPIDEMIA Continue statin and gemfibrozil DVT PROPHYLAXIS Per ortho DISPOSITION Per ortho Will be discharged today Vital Signs: Date Time Temp Pulse Resp B/P (MAP) Pulse Ox O2 Delivery O2 Flow Rate FiO2 07/02/17 10:03 63 97 07/02/17 09:15 36.6 63 18 97 Room Air 07/02/17 08:25 Room Air 07/02/17 07:06 36.6 63 18 126/72 (90) 97 Room Air 07/01/17 23:30 Room Air 07/01/17 22:56 37.1 69 16 126/72 (90) 99 Room Air 07/01/17 15:20 Room Air Lab Results: Results Past 24 Hours Test 07/01/17 17:18 07/01/17 20:24 07/02/17 07:59 07/02/17 08:30 Range/Units Bedside Glucose 156 106 112 70-90 mg/dl White Blood Count 8.78 4.8-10.8 K/uL Red Blood Count 3.76 4.2-5.4 M/uL Hemoglobin 11.0 12.0-16.0 g/dL Hematocrit 34.0 37-47 % Mean Corpuscular Volume 90.4 80-100 fL Mean Corpuscular Hemoglobin 29.3 25-34 pg Mean Corpuscular Hemoglobin Concent 32.4 32-36 g/dl RDW Standard Deviation 48.3 36.4-46.3 fL RDW Coefficient of Variation 14.7 11.5-14.5 % Platelet Count 168 130-400 K/uL Mean Platelet Volume 9.8 7.4-10.4 fL Sodium Level 143 136-145 mmol/L Potassium Level 3.7 3.5-5.1 mmol/L Chloride Level 108 98-107 mmol/L Carbon Dioxide Level 30 21-32 mmol/L Anion Gap 5.0 3-11 mmol/L Blood Urea Nitrogen 20 7-18 mg/dl Creatinine 0.99 0.60-1.20 mg/dl Est Creatinine Clear Calc Drug Dose 61.8 ml/min Estimated GFR () 68.3 Estimated GFR (Non- 59.0 BUN/Creatinine Ratio 19.8 10-20 Random Glucose 112 70-99 mg/dl Calcium Level 8.4 8.5-10.1 mg/dl Magnesium Level 1.9 1.8-2.4 mg/dl
--- NOTE | 2017-07-07 21:42 | Discharge Summary ---
Orthopedic Discharge Summary Admission Date/Reason Jun 30, 2017 at 06:55 Left Knee Osteoarthritis. Discharge Date/Disposition Jul 02, 2017 Home with services Diagnosis Principal Diagnosis: S/P left total knee arthroplasty Medication Reconciliation as per discharge instructions Admission Physical Exam As per Admitting History & Physical. Hospital Course POD #1 patient was feeling well and pain was controlled with PO medications. It was discussed that she would go home the next day with Home health services. POD # 2 patient was feeling well with no complaints and pain was controlled with PO medications. She was discharged home with home health services. Discharge Instructions Please refer to the electronic Patient Visit Report (Discharge Instructions) for additional information.
== END 2017-07-02 11:18 | disposition home health service (06) | DRG 470 ==
LOC: C.ACU 06:22 → C.3E 06:55 → ENRESERV 13:34
PROVIDERS: ADMIT Orthopaedic Surgery; ATTEND Orthopaedic Surgery
PROC: 0SRD0J9 Replacement of Left Knee Joint with Synthetic Substitute, Cemented, Open Approach (ICD-10-PCS; principal; 2017-06-30 09:00)
DX: M17.12 Unilateral primary osteoarthritis, left knee (principal); Z68.41 Body mass index [BMI] 40.0-44.9, adult; I10 Essential (primary) hypertension; E78.5 Hyperlipidemia, unspecified; E11.9 Type 2 diabetes mellitus without complications; E66.01 Morbid (severe) obesity due to excess calories; Z82.49 Family history of ischemic heart disease and other diseases of the circulatory system; Z79.82 Long term (current) use of aspirin